=== PATIENT | male | born 1985 | race Hispanic/Latino ===

== ENCOUNTER 2023-09-21 11:42 | Outpatient (CLI) | payer OTHER | END 2023-09-21 11:43 | disposition home or self-care (01) | LOC: SCSRAD 11:42 | PROVIDERS: ATTEND Nurse Practitioner Family | DX: M47.26 Other spondylosis with radiculopathy, lumbar region (principal); M54.32 Sciatica, left side | CPT/HCPCS: 72100 ==

== ENCOUNTER 2023-10-25 11:26 | Outpatient (CLI) | payer OTHER | END 2023-10-25 11:27 | disposition home or self-care (01) | LOC: SCSMRI 11:26 | PROVIDERS: ATTEND Nurse Practitioner Family | DX: M51.16 Intervertebral disc disorders with radiculopathy, lumbar region (principal); M25.78 Osteophyte, vertebrae; M48.061 Spinal stenosis, lumbar region without neurogenic claudication | CPT/HCPCS: 72148 ==